=== PATIENT | female | born 1990 | race Caucasian/White ===

== ENCOUNTER → 2018-05-07 | Outpatient (CLI) | payer BC ==
[~2018-05-07] MED LIST: COLACE 100100 MG/CAP PO; MOTRIN 600600 MG/TAB PO; PERCOCET 325 MG1 TA2 PO; PRENATAL1 TA1 PO
== END ==
LOC: SUN.DIA 13:38
DX: O24.419 Gestational diabetes mellitus in pregnancy, unspecified control (principal); Z3A.00 Weeks of gestation of pregnancy not specified
CPT/HCPCS: G0108

== ENCOUNTER 2018-07-10 09:18 | Inpatient (IN) | payer BC ==
[~2018-07-10] VITALS: Ht 160 cm; Wt 63.2 kg
[2018-07-10] VITALS (13 sets, daily range): BP systolic 102–135; BP diastolic 55–70; PULSE 65–89; TEMP 97.8–98.8
[2018-07-10 09:45] LABS: BASO # 0.1 (0.0-0.2); BASO % 0.4 % (0.0-2.0); EOS # 0.1 (0.0-0.7); EOS % 0.6 % (0-4.0); GRAN # 9.1 (1.4-6.5); GRAN % 78.5 % (42.2-75.2); HEMOGLOBIN 12.1 g/dl (12.5-16.0); LYMPH # 1.8 (1.2-3.4); LYMPH % 15.4 % (20.0-51.0); MEAN CELL VOLUME 92 fl (80.0-100.0); MEAN CORPUSCULAR HEMOGLOBIN 31 pg (27.0-31.0); MEAN CORPUSCULAR HGB CONC 34 g/dl (33.0-37.0); MONO # 0.6 (0.1-0.6); MONO % 4.7 % (1.7-9.3); PLATELET COUNT 181 K/mm3 (130-400); RED BLOOD COUNT 3.85 M/mm3 (4.10-5.30); REDCELL DISTRIBUTION WIDTH-CV 13.2 % (11.5-14.5)
[2018-07-10 09:50] LABS: HEMATOCRIT 35.4 % (37.0-47.0)
[2018-07-11 09:55] VITALS: BP 117/68; PULSE 78; TEMP 98.2
[2018-07-11] MEDS ORDERED: PERCOCET 325 MG1 TA2 PO (12:05)
[2018-07-11] MEDS ORDERED: IBU800 M1 PO (12:05)
== END 2018-07-11 14:00 | disposition home or self-care (01) | DRG 807 ==
LOC: LDRO 09:18 → LDR 09:20 → OB 12:30
PROVIDERS: Obstetrics & Gynecology
PROC: 10E0XZZ Delivery of Products of Conception, External Approach (ICD-10-PCS; principal; 2018-07-10)
PROC: 0HQ9XZZ Repair Perineum Skin, External Approach (ICD-10-PCS; 2018-07-10)
PROC: 0UQMXZZ Repair Vulva, External Approach (ICD-10-PCS; 2018-07-10)
DX: O24.420 Gestational diabetes mellitus in childbirth, diet controlled (principal); Z37.0 Single live birth; Z3A.39 39 weeks gestation of pregnancy; O77.0 Labor and delivery complicated by meconium in amniotic fluid; O70.0 First degree perineal laceration during delivery; O71.82 Other specified trauma to perineum and vulva; O69.81X0 Labor and delivery complicated by cord around neck, without compression, not applicable or unspecified
CPT/HCPCS: J2590; J7120